=== PATIENT | male | born 1960 | race Caucasian/White ===

== ENCOUNTER 2022-02-21 10:44 | Emergency (ER) | payer OTHER, SELFPAY ==
--- NOTE | ~2022-02-21 | XR_ITS ---
EXAMINATION: XR lumbar spine 2-3V DATE: 02/21/2022 12:35 INDICATION: Low back pain TECHNIQUE: Anteroposterior and lateral views of the lumbar spine, and cone-down lateral view of the l umbosacral junction were obtained. COMPARISON: CT, 08/03/2015 FINDINGS: Bone alignment is normal. There is no fracture. There is severe loss of intervertebral disc space height at L5-S1 and moderate loss of disc space height at L4-5. Small degenerative osteophytes project from the anterior endplates of multiple vertebral bodies. The vertebral body heights are griselda ntained. Changes of mesh ventral hernia repair are noted. A gallstone is present. There is calcified atherosclerosis of the aorta. IMPRESSION: 1. Severe lower lumbar spondylosis without acute findings. Reviewed, dictated and finalized at location B.
[2022-02-21 10:46] VITALS: BP 148/100; PULSE 113; RESP 16; TEMP 36.5; O2SAT 100
--- NOTE | 2022-02-21 12:16 | ED.BACK ---
HPI - Back Pain/Injury General Chief Complaint: Back Pain/Injury Stated Complaint: Back Injury Time Seen by Provider: 02/21/22 11:55 Source: patient and family History of Present Illness HPI Narrative: 61-year-old male presenting to the emergency department for evaluation of lower back pain. Patient states he has a remote history of ruptured disc from 1992. Patient states he has never had surgical repair on this. Patient states he does often have intermittent back pain that typically improves with anti-inflammatories. Patient states that on Saturday he twinged his back lifting a door. Patient states since that time he has had left back pain that radiates to his left leg. Patient denies any associated numbness or weakness. Patient has taken ibuprofen without significant improvement. Patient denies any loss of bowel or bladder control. Related Data Allergies Allergy/AdvReac Type Severity Reaction Status Date / Time No Known Allergies Allergy Unverified 02/21/22 12:10 Review of Systems Review of Systems: CONSTITUTIONAL: Denies fever, chills, or sweats. EYES: Denies visual changes, redness, or discharge. ENT: Denies rhinorrhea, congestion, sore throat, or otalgia. CARDIOVASCULAR: Denies chest pain, palpitations, or edema. RESPIRATORY: Denies cough or dyspnea. GASTROINTESTINAL: Denies abdominal pain, nausea, vomiting, or diarrhea. GENITOURINARY: Denies dysuria or hematuria. SKIN: Denies rash or itching. MUSCULOSKELETAL: Lower back pain that radiates to left leg. NEUROLOGIC: No numbness or weakness PMFSH Family History Family History (Updated 07/29/14 @ 07:13 by DOCTOR UNKNOWN) Mother Family history of malignant neoplasm Father Family history of heart disease in male family member before age 55 Social History Social History Second hand tobacco smoke exposure: No Alcohol intake: current Exam Narrative: APPEARANCE: Well appearing, no pain, no distress, well-nourished. HEAD: normocephalic, atraumatic. EYES: PERRLA/EOMI, conjunctivae clear. NOSE: Normal no drainage NECK: Supple. No adenopathy, no masses. RESPIRATORY: Airway patent, respirations nonlabored. Clear to auscultation bilaterally, no rales, rhonchi, wheezing. CARDIOVASCULAR: Regular rate and rhythm without murmurs rubs or gallops. ABDOMINAL: Soft, nontender, nondistended, normal bowel sounds MUSCULOSKELETAL: Moves all extremities. Strength/ROM intact, No edema, No calf tenderness. Lower back and left buttock tenderness. NEURO: Alert. Cranial nerves II through XII intact. Normal strength and reflexes SKIN: Warm, dry. Normal Color Course Course Emergency Course: X-ray showed no acute fracture or dislocation. Patient did feel mildly improved with pain medication but is still in some discomfort. Patient is neurologically intact and has no associated numbness or weakness. Suspect sciatica or lumbar radiculopathy as the underlying etiology of the patient's symptoms. Patient was started on a Medrol Dosepak. Patient was provided medications for pain control for home, including [place] and Flexeril. Patient was encouraged to have close follow-up with his primary care physician. Patient was also educated on reasons to return to the emergency department. All questions and concerns were addressed. Vital Signs Vital signs: Vital Signs Temperature 97.7 F 02/21/22 10:46 Pulse Rate 113 H 02/21/22 10:46 Respiratory Rate 16 02/21/22 10:46 Blood Pressure 148/100 H 02/21/22 10:46 Pulse Oximetry 100 02/21/22 10:46 Temperature 97.7 F 02/21/22 10:46 Pulse Rate 113 H 02/21/22 10:46 Respiratory Rate 16 02/21/22 10:46 Blood Pressure 148/100 H 02/21/22 10:46 Pulse Oximetry 100 02/21/22 10:46 MDM - Back Pain/Injury Differential Diagnosis Differential diagnosis: Likely lumbar radiculopathy and strain of lumbar region Imaging Data Radiologist's impression: Impressions Lumbar Spine X-Ray 02/21/22 12:38 IMPRESSION: 1. Severe lower lumba
[2022-02-21] MEDS: KETOROLAC 15 MG/ML VIAL (*BKC) IV PUSH (12:22)
[2022-02-21] MEDS: CYCLOBENZAPRINE HCL 10 MG TABLET PO (12:22)
[2022-02-21] MEDS: HYDROcodone/acetaminophen (*CRX) 5-325 MG TABLET 1 TAB PO (12:41)
[2022-02-21] MEDS: DEXAMETHASONE 2 MG TABLET 6 MG PO (14:08)
== END 2022-02-21 14:17 | disposition home or self-care (01) ==
PROVIDERS: Emergency Provider Emergency Medicine; PCP Internal Medicine
DX: M54.16 Radiculopathy, lumbar region (principal)
CPT/HCPCS: 72100; 96374; 99284; A9270; J1885; J8540

== ENCOUNTER 2023-05-27 13:57 | Emergency (ER) | payer OTHER, SELFPAY ==
--- NOTE | ~2023-05-27 | CT_ITS ---
EXAMINATION: CT abdomen pelvis wo con DATE: 05/27/2023 15:18 INDICATION: Lower abdominal pain TECHNIQUE: Computed tomography (CT) of the abdomen and pelvis was performed without intravenous contr ast. The dose-length product (DLP) was 745.46 mGy-cm. Automated exposure control and iterative recons truction technique were employed. COMPARISON: 08/03/2015 FINDINGS: Minimal dependent atelectasis is present in the lung bases. The heart size is normal. A sto ne is present in the nondistended gallbladder. The liver, spleen, pancreas, and adrenal glands are no rmal. The right kidney is unremarkable. There is a 12 mm soft tissue attenuation mass of the left kid zak lower pole. There is wall thickening of the urinary bladder with mild surrounding fat stranding. There is a surgical anastomosis of the rectum. Changes of pelvic lymph node dissection are noted. The re is unchanged mild chronic enlargement of a left retroperitoneal lymph node. No free intraperitonea l gas or evidence of bowel obstruction. The appendix is normal. There is severe lumbar spondylosis. IMPRESSION: 1. Wall thickening of the urinary bladder with surrounding fat stranding suggestive of cystitis. 2. Indeterminate left kidney mass. Follow-up with nonemergent MRI or CT without and with contrast is recommended. 2. Cholelithiasis. Reviewed, dictated and finalized at location [] IMPRESSION: 1. Wall thickening of the urinary bladder with surrounding fat stranding sugges tive of cystitis. 2. Indeterminate left kidney mass. Follow-up with nonemergent MRI or CT without and with contrast is recommended. 2. Cholelithiasis.
[2023-05-27 14:09] VITALS: BP 127/85; PULSE 125; RESP 16; TEMP 36.6; O2SAT 98
[2023-05-27 15:17] LABS: Basophils Absolute Auto 0.1 K/mm3 (0.0-0.1); Basophils Percent Auto 0.9 % (0.2-1.2); Eosinophils Absolute Auto 0.2 K/mm3 (0-0.3); Eosinophils Percent Auto 1.9 % (0-4.4); Hemoglobin 12.5 g/dL (14.0-18.0); Immature Granulocyte Absolute 0.06 K/mm3 (0.00-0.031); Immature Granulocyte Percent A 0.5 % (0-0.5); Lymphocytes Absolute Auto 1.55 K/mm3 (0.9-3.2); Lymphocytes Percent Auto 12.4 % (18.3-44.2); Mean Corpuscular HGB Conc 32.9 g/dl (32-36); Mean Corpuscular Hemoglobin 33.5 pg (26-34); Mean Corpuscular Volume 101.9 fl (80-100); Mean Platelet Volume 10.2 fl (7.4-10.4); Monocytes Percent Auto 8.3 % (2.6-8.5); Neutrophils Absolute Auto 9.5 K/mm3 (1.3-6.7); Platelet Count Result 256 k/mm3 (150-375); Red Blood Count 3.73 M/mm3 (4.6-6.20); Red Cell Distribution Width 12.4 % (11.5-14.5); White Blood Count 12.5 K/mm3 (4.5-10.0)
[2023-05-27 15:22] LABS: Appearance Urine Turbid (Clear); Bacteria Urine None Seen /hpf; Bilirubin Urine Negative (Negative); Blood Urine 3+ (Negative); Color Urine Yellow (Yellow); Glucose Urine UA Negative (Negative); Ketones Urine Negative (Negative); Leukocyte Esterase Ur 3+ LEU/UL (Negative); Nitrate Urine Negative (Negative); Protein Urine 2+ mg/dL (Negative); RBC Urine 21-50 /hpf (0-2); Specific Grav Ur 1.013 (1.001-1.035); Squamous Epithelial Cell Urine None seen /hpf (Few); Urobilinogen Urine 0.2 mg/dL (<2.0); WBC Urine >100 /hpf; pH Urine 5.5 (5.0-9.0)
[2023-05-27 15:27] LABS: Alanine Aminotransferase 52 U/L (6-50); Albumin Level 4.5 g/dL (3.5-5.1); Alkaline Phosphatase 74 U/L (38-126); Anion Gap 11 mmol/L (8-16); Aspartate Amino Transferase 46 U/L (17-59); Bilirubin,Total 0.5 mg/dL (0.2-1.3); Blood Urea Nitrogen 16 mg/dL (9-20); Calcium 9.8 mg/dL (8.4-10.2); Carbon Dioxide 25 mmol/L (22-30); Chloride 101 mmol/L (98-107); Estimated CRCL calculation 60 ml/min; Estimated Glomerular Filt Rate > 60; Glucose 157 mg/dL (65-110); Potassium 3.7 mmol/L (3.4-5.0); Sodium 137 mmol/L (137-145)
[2023-05-27 15:32] LABS: Add Urine Microscopic? YES
--- NOTE | 2023-05-27 15:59 | ED.MALEGU ---
HPI - Male Genitourinary General Chief complaint: Urogenital-Male Stated complaint: urinary retention Time Seen by Provider: 05/27/23 14:15 History of Present Illness HPI Narrative: Patient is a 62-year-old male who presents ER with urinary frequency. Ongoing for 2 days. Reports he feels like he has to pee regularly and then can only get out a small dribble and then will continue to leak. Occasional proximal isms pain in lower abdomen. No fevers or sweats. He has had some chills. Denies dysuria. Reports it began with a sensation of being constipated. No history of prostatitis. 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 Related Data Allergies Allergy/AdvReac Type Severity Reaction Status Date / Time No Known Allergies Allergy Unverified 05/27/23 13:57 Review of Systems Review of Systems: All systems reviewed & are unremarkable except as noted in HPI and below Constitutional: Constitutional: Denies chills, Denies fatigue and Denies fever(s) ENT: Denies nasal congestion and Denies sore throat Cardiovascular: Cardiovascular: Denies chest pain, Denies rapid heart rate and Denies radiating jaw, neck or arm pain Respiratory: Respiratory: Denies cough and Denies dyspnea Gastrointestinal: Gastrointestinal: Reports abdominal pain, Denies nausea and Denies vomiting Genitourinary: Genitourinary: Denies hematuria, Denies dysuria, Denies penile discharge, Reports urinary frequency and Reports urinary incontinence [facility] Family History Family History (Updated 07/29/14 @ 07:13 by DOCTOR UNKNOWN) Mother Family history of malignant neoplasm Father Family history of heart disease in male family member before age 55 Social History Social History Second hand tobacco smoke exposure: No Alcohol intake: current Course Course Emergency Course: Patient educated on diagnosis and treatment plan. Verbalized understanding. Received IV antibiotics here and will be discharged with oral antibiotics. Vital Signs Vital signs: Vital Signs Temperature 97.8 F 05/27/23 14:09 Pulse Rate 125 H 05/27/23 14:09 Respiratory Rate 16 05/27/23 14:09 Blood Pressure 127/85 05/27/23 14:09 Pulse Oximetry 98 05/27/23 14:09 Oxygen Delivery Room Air 05/27/23 14:09 Temperature 97.8 F 05/27/23 14:09 Pulse Rate 125 H 05/27/23 14:09 Respiratory Rate 16 05/27/23 14:09 Blood Pressure 127/85 05/27/23 14:09 Pulse Oximetry 98 05/27/23 14:09 Oxygen Delivery Room Air 05/27/23 14:09 MDM - Male Genitourinary Lab Data 05/27/23 15:11 05/27/23 15:11 Labs: Lab Results 05/27/23 Range/Units 15:11 WBC 12.5 H (4.5-10.0) K/mm3 RBC 3.73 L (4.6-6.20) M/mm3 Hgb 12.5 L (14.0-18.0) g/dL Hct 38.0 L (42.0-52.0) % MCV 101.9 H (80-100) fl MCH 33.5 (26-34) pg MCHC 32.9 (32-36) g/dl RDW 12.4 (11.5-14.5) % Plt Count 256 (150-375) k/mm3 MPV 10.2 (7.4-10.4) fl Immature Gran % (Auto) 0.5 (0-0.5) % Neut % (Auto) 76.0 H (45.5-73.1) % Lymph % (Auto) 12.4 L (18.3-44.2) % [place] % (Auto) 8.3 (2.6-8.5) % Eos % (Auto) 1.9 (0-4.4) % Baso % (Auto) 0.9 (0.2-1.2) % Lymph # (Auto) 1.55 (0.9-3.2) K/mm3 [place] # (Auto) 1.0 H (0.1-0.6) K/mm3 Eos # (Auto) 0.2 (0-0.3) K/mm3 Baso # (Auto) 0.1 (0.0-0.1) K/mm3 Abs Immat Gran (auto) 0.06 H (0.00-0.031) K/mm3 Absolute Neuts (auto) 9.5 H (1.3-6.7) K/mm3 Absolute Nucleated RBC 0.0 (0.0-0.012) K/mm3 Nucleated RBC % 0.0 (0.0-0.2) % Sodium 137 (137-145) mmol/L Potassium 3.7 (3.4-5.0) mmol/L Chloride 101 (98-107) mmol/L Carbon Dioxide 25 (22-30) mmol/L Anion Gap 11 (8-16) mmol/L BUN 16 (9-20) mg/dL Creatinine 1.20 (0.7-1.3) mg/dL Estim Creat Clear Calc 60 ml/min Estimated GFR > 60 (59 - ) Glucose 157 H (65-110) mg/dL Calcium 9.8 (8.4-10.2) mg/dL Total Bilirubin 0.5 (0.2-1.3) mg/dL AST 46 (17-59) U/L ALT 52 H
== END 2023-05-27 16:15 | disposition home or self-care (01) ==
PROVIDERS: Emergency Provider Emergency Medicine; PCP Internal Medicine
DX: N30.90 Cystitis, unspecified without hematuria (principal); K80.20 Calculus of gallbladder without cholecystitis without obstruction; N28.89 Other specified disorders of kidney and ureter
CPT/HCPCS: 36415; 74176; 80053; 81001; 85025; 87077; 87086; 87088; 87186; 96365; 99284; J0696